=== PATIENT | female | born 1995 | race Caucasian/White ===

== ENCOUNTER 2020-06-13 12:16 | Emergency (ER) | payer OTHER ==
[2020-06-13 12:24] VITALS: BP 128/66
--- NOTE | 2020-06-13 12:31 | ED Physician Documentation ---
PD HPI HEENT - Stated complaint Stated Complaint: LEFT EAR PX,HEADACHE - Chief complaint Chief Complaint: Heent - History obtained from History obtained from: Patient - History of Present Illness Timing - onset: How many months ago (1) Timing - duration: Months (has had some pains left ear and some feeling of congestion/decreased hearing left ear for a month. Has had some drainage the past few days, along with worse pain. Also having sense of malodor/ foul smell that she thought was something outside of her, but could not identify what smelled badly.) Timing - details: Gradual onset, Still present (worse the past few days.) Location: Left ear Associated symptoms: Congestion. No: Fever, Facial swelling, Cough Similar symptoms before: Has not had sx before Recently seen: Not recently seen Review of Systems Constitutional: denies: Fever, Chills Ears: reports: Ear pain (left), Drainage/discharge (left) Nose: denies: Rhinorrhea / runny nose, Congestion Throat: denies: Sore throat Respiratory: denies: Cough Skin: denies: Rash Neurologic: denies: Headache PD PAST MEDICAL HISTORY - Past Medical History Cardiovascular: None Respiratory: None Neuro: None Endocrine/Autoimmune: None GI: None PIZZAMAKER: None : None HEENT: None Psych: None Musculoskeletal: None Derm: None - Past Surgical History Past Surgical History: No - Present Medications Home Medications: Ambulatory Orders Medication Instructions Recorded Confirmed Doxycycline Monohydrate 150 mg PO BID #14 capsule 06/13/20 Naproxen Sodium [Anaprox Ds] 550 mg PO BID #20 tablet 06/13/20 Neomycin/Polymyx/Hc Otic Drops 3 drops LEFTEAR QID 5 Days #1 06/13/20 [Cortisporin Ear Susp] bottle - Allergies Allergies/Adverse Reactions: Allergies Allergy/AdvReac Type Severity Reaction Status Date / Time No Known Drug Allergies Allergy Verified 06/13/20 12:21 - Social History Does the pt smoke?: No Smoking Status: Never smoker Does the pt drink ETOH?: Yes Does the pt have substance abuse?: No - POLST Patient has POLST: No PD ED PE NORMAL - Vitals Vital signs reviewed: Yes - General General: Alert and oriented X 3, No acute distress, Well developed/nourished - HEENT HEENT: Pharynx benign. No: Ears normal (left ear with redness and swelling medial canal, with some exudate, but also edema of part of the canal. No noted focal swelling. The TM is moderately red as well. ) - Neck Neck: Supple, no meningeal sign, No adenopathy - Cardiac Cardiac: RRR, No murmur - Respiratory Respiratory: Clear bilaterally - Derm Derm: No: Normal color, Warm and dry Results - Vitals Vitals: Vital Signs - 24 hr 06/13/20 12:21 Temperature 36.5 C Heart Rate 73 Respiratory 16 Rate Blood Pressure 128/66 O2 Saturation 98 Oxygen O2 Source Room air PD MEDICAL DECISION MAKING - ED course Complexity details: considered differential (seems like OE left ear, but also appearance of canal cellulitis. Also her congestion and sense of malodor suggests sinusitis. So will go with oral as well as otic medications. ), d/w patient Departure - Departure Disposition: Home, Self Care Clinical Impression: Otitis externa Qualifiers: Otitis externa type: diffuse Chronicity: acute Laterality: left Qualified Code(s): H60.312 - Diffuse otitis externa, left ear Sinusitis, acute Qualifiers: Sinusitis location: unspecified location Recurrence: non-recurrent Qualified Code(s): J01.90 - Acute sinusitis, unspecified Condition: Stable Record reviewed to determine appropriate education?: Yes Instructions: ED Sinusitis Abx Tx, ED Otitis Externa Follow-Up: [facility] [Provider Group] Prescriptions: Naproxen Sodium [Anaprox Ds] 550 mg PO BID #20 tablet Neomycin/Polymyx/Hc Otic Drops [Cortisporin Ear Susp] 3 drops LEFTEAR QID 5 Days #1 bottle Doxycycline Monohydrate 150 mg PO BID #14 capsule Comments: Use the Cortisporin eardrops for the infection in the ear canal. Add anti- inflammatory twice daily as well. Also appears that there is some infection in the tissue around the ear and sounds like you have some sinus infection as well. For that take the antibiotic twice daily for a week. Add Tylenol if needed for pains. Recheck if not improved well over the next several days with your primary care. Your problems with the ear pain and the abnormal smelling/odor sounds more like sinus infection and less like Covid. We did do a Covid test on you and that will result in likely a couple of days. We will call you with positive results. You have a Covid test pending. You need to self quarantine until the result is done and negative. Do not leave your house. Do not get near anybody. The results should be done in 48 to 72 hours, but sometimes longer. We will call with a positive result, the fastest way to get a negative result for confirmation though is to go to the hospital website at [email or web address], click on the my [facility] tab and sign up for the patient portal. If any friends or family get sick and would like to have a Covid test done, but do not have signs or symptoms that would necessitate being hospitalized, we encourage testing through our coronavirus swabbing station, call [phone] to schedule an appointment. Discharge Date/Time: 06/13/20 13:21
[2020-06-13] MEDS ORDERED: DOXYCYCLINE 100 MG TABLET PO STA (12:48)
[2020-06-13] MEDS ORDERED: IBUPROFEN 600 MG TABLET PO STA (12:48)
== END 2020-06-13 13:21 | disposition home or self-care (01) ==
LOC: ED 12:16
DX: H60.312 Diffuse otitis externa, left ear (principal); J01.90 Acute sinusitis, unspecified; Z20.822 Contact with and (suspected) exposure to COVID-19
CPT/HCPCS: 87635; 99283; 99284; A9270

== ENCOUNTER 2020-11-11 17:39 | Emergency (ER) | payer OTHER ==
[2020-11-11 19:21] LABS: BASOPHILS # (AUTO) 0.1 10^3/uL (0.0-0.1); BASOPHILS % (AUTO) 0.6 %; EOSINOPHILS % (AUTO) 0.2 %; HCT - HEMATOCRIT 41.4 % (37.0-47.0); HGB - HEMOGLOBIN 14.3 g/dL (12.0-16.0); LYMPHOCYTES # (AUTO) 1.7 10^3/uL (1.5-3.5); LYMPHOCYTES % (AUTO) 14.7 %; MEAN CORPUSCULAR HEMOGLOBIN 30.5 pg (27.0-31.0); MEAN CORPUSCULAR HGB CONC 34.5 g/dL (32.0-36.0); MEAN CORPUSCULAR VOLUME 88.3 fL (81.0-99.0); MEAN PLATELET VOLUME 9.1 fL (7.9-10.8); MONOCYTES # (AUTO) 0.7 10^3/uL (0.0-1.0); MONOCYTES % (AUTO) 5.6 %; NEUTROPHILS # (AUTO) 9.3 10^3/uL (1.5-6.6); NEUTROPHILS % (AUTO) 78.6 %; PLT - PLATELET COUNT 357 10^3/uL (130-450); RED BLOOD COUNT 4.69 10^6/uL (4.20-5.40); RED CELL DISTRIBUTION WIDTH 12.4 % (12.0-15.0); WHITE BLOOD COUNT 11.8 x10^3/uL (4.8-10.8)
[2020-11-11 19:36] LABS: ACETAMINOPHEN < 10 ug/mL (10-30); ALBUMIN 4.9 g/dL (3.2-5.5); ALBUMIN/GLOBULIN RATIO 1.4 (1.0-2.2); ALKALINE PHOSPHATASE 64 IU/L (42-121); ALT ALANINE AMINOTRANSFERASE 21 IU/L (10-60); AST ASPARTATE AMINOTRANSFERASE 21 IU/L (10-42); BUN - BLOOD UREA NITROGEN 13 mg/dL (6-20); CALCIUM 9.1 mg/dL (8.5-10.3); CARBON DIOXIDE - CO2 21 mmol/L (21-32); CHLORIDE 101 mmol/L (101-111); CREATININE 0.9 mg/dL (0.4-1.0); ETOH - ETHANOL < 5.0 mg/dL; GFR - MDRD 75 (>89); GLUCOSE 81 mg/dL (70-100); LIPASE 19 U/L (22-51); POTASSIUM 3.7 mmol/L (3.5-5.0); SALICYLATE < 6.0 mg/dL; SODIUM 133 mmol/L (135-145); TOTAL PROTEIN 8.3 g/dL (6.7-8.2)
[2020-11-11 22:10] VITALS: BP 126/69
[2020-11-11 22:35] LABS: MUDS CUTOFF CONCENTRATIONS CUTOFF CONC BELOW:
[2020-11-11 22:36] LABS: GLUCOSE, URINE (UA) NEGATIVE (NEGATIVE); KETONES,URINE (UA) 40 mg/dL (NEGATIVE); LEUKOCYTE ESTERASE, URINE NEGATIVE (NEGATIVE); NITRITE,URINE NEGATIVE (NEGATIVE); OCCULT BLOOD,URINE NEGATIVE (NEGATIVE); PH,URINE 5.5 PH (5.0-7.5); PROTEIN,URINE NEGATIVE (NEGATIVE); UROBILINOGEN,URINE 0.2 (NORMAL) E.U./dL (NORMAL)
[2020-11-11 22:37] LABS: CLARITY,URINE CLEAR (CLEAR)
[2020-11-11 22:39] LABS: BILIRUBIN,URINE NEGATIVE (NEGATIVE); ICTOTEST,URINE NEGATIVE
[2020-11-11 22:46] LABS: THC CANNABINOID SCREEN, URINE POSITIVE (NEGATIVE)
[2020-11-11 22:47] LABS: AMPHETAMINE SCREEN,URINE POSITIVE (NEGATIVE); BARBITURATE SCREEN,UR NEGATIVE (NEGATIVE); BENZODIAZEPINES SCREEN, URINE NEGATIVE (NEGATIVE); COCAINE SCREEN URINE NEGATIVE (NEGATIVE); METHADONE SCREEN, URINE NEGATIVE (NEGATIVE); METHAMPHETAMINES SCREEN, URINE NEGATIVE (NEGATIVE); OPIATE SCREEN, URINE NEGATIVE (NEGATIVE); OXYCODONE SCREEN, URINE NEGATIVE (NEGATIVE); PROPOXYPHENE SCREEN, URINE NEGATIVE (NEGATIVE); TRICYCLIC ANTIDEPRESSANT,URINE NEGATIVE (NEGATIVE)
--- NOTE | 2020-11-11 23:11 | ED Physician Documentation ---
History of Present Illness - Stated complaint Stated Complaint: MHE - Chief complaint Chief Complaint: MHE - History obtained from History obtained from: Patient - Additonal information Additional information: AndPatient comes emergency department chief complaint of I have been able to sleep and I cannot take my job anymore. Patient states she has a history of anxiety but that before she got station it would be, she was doing much better. She states that she felt that her former location and base was more organized and focused and she liked the work environment better. Patient states that some issues at work have really been bothering her and making her increasingly upset. She states that lately it is all come to ahead and that she has not slept in 4 days. Patient states that since not sleeping for 4 days, she has begun to hear the sound of whispering in her ears. She states that she has never had psychosis before and really thinks that she is from losing sleep. She denies any hallucinations at this moment.She states that [place] just want to give her medications. She did foot do an outpatient course of [facility] in managing stress and anxiety and states it is actually very helpful. She states she felt like she was in a good place as far as her mental status when she finished the course but then came back to find the same problems at work. 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 She states that this point that she is not suicidal or homicidal but she would like to try to figure out other resources that may help her get through. She states she had a big "meltdown" at work and spoke harshly to some of her higher reps. She states that a letter has been issued asking to go through the separation process with the patient from the [employer]. No other complaints at this time. Patient has not tried to harm herself in any way. She does have friends and significant other for support. Review of Systems Ten Systems: 10 systems reviewed and negative Constitutional: reports: Reviewed and negative Eyes: reports: Reviewed and negative Ears: reports: Reviewed and negative Nose: reports: Reviewed and negative Throat: reports: Reviewed and negative Cardiac: reports: Reviewed and negative Respiratory: reports: Reviewed and negative GI: reports: Reviewed and negative : reports: Reviewed and negative Skin: reports: Reviewed and negative Musculoskeletal: reports: Reviewed and negative Neurologic: reports: Reviewed and negative Psychiatric: reports: Hallucinations, Anxiety, Insomnia Endocrine: reports: Reviewed and negative Immunocompromised: reports: Reviewed and negative PD PAST MEDICAL HISTORY - Past Medical History Cardiovascular: None Respiratory: None Neuro: None Endocrine/Autoimmune: None GI: None CONTAINER COORDINATOR: None : None HEENT: None Psych: Depression, Anxiety, ADD/ADHD, Post traumatic stress disorder Musculoskeletal: None Derm: None - Past Surgical History Past Surgical History: No - Present Medications Home Medications: Ambulatory Orders Medication Instructions Recorded Confirmed Dextroamphetamine/Amphetamine 10 mg PO DAILY 11/11/20 11/11/20 [Adderall 10 mg Tablet] Dextroamphetamine/Amphetamine 30 mg PO DAILY 11/11/20 11/11/20 [Adderall 30 mg Tablet] Mirtazapine 15 mg PO DAILY 11/11/20 11/11/20 hydrOXYzine HCL [Hydroxyzine HCl] 10 mg PO DAILY 11/11/20 11/11/20 - Allergies Allergies/Adverse Reactions: Allergies Allergy/AdvReac Type Severity Reaction Status Date / Time No Known Drug Allergies Allergy Verified 11/11/20 17:50 - Social History Does the pt smoke?: No Smoking Status: Never smoker Does the pt drink ETOH?: Yes Does the pt have substance abuse?: No - Immunizations Immunizations are current?: Yes - POLST Patient has POLST: No PD ED PE NORMAL - Vitals Vital signs reviewed: Yes - General General: Alert and oriented X 3, Well developed/nourished, Other (Patient appears anxious but is generally calm.) - HEENT HEENT: PERRL - Neck Neck: Supple, no meningeal sign - Cardiac Cardiac: RRR, No murmur - Respiratory Respiratory: No respiratory distress, Clear bilaterally - Abdomen Abdomen: Soft, Non tender, Non distended - Derm Derm: Normal color, Warm and dry, No rash - Extremities Extremities: No deformity, No edema - Neuro Neuro: Alert and oriented X 3, motor setter 2-12 intact, Normal speech, Other (Grossly intact) - Psych Psych: Normal affect, Other (Patient appears anxious and sometimes becomes very animated and some agitated. However, she calms easily.) Results - Vitals Vitals: Vital Signs - 24 hr 11/11/20 11/11/20 17:50 22:09 Temperature 36.7 C 36.0 C L Heart Rate 106 H 100 Respiratory 18 18 Rate Blood Pressure 147/89 H 126/69 O2 Saturation 99 99 Oxygen O2 Source Room air - Labs Labs: Laboratory Tests 11/11/20 11/11/20 11/11/20 19:17 19:17 19:17 WBC 11.8 H RBC 4.69 Hgb 14.3 Hct 41.4 MCV 88.3 MCH 30.5 MCHC 34.5 RDW 12.4 Plt Count 357 MPV 9.1 Neut # (Auto) 9.3 H Lymph # (Auto) 1.7 Sanborn # (Auto) 0.7 Eos # (Auto) 0.0 Baso # (Auto) 0.1 Absolute Nucleated RBC 0.00 Nucleated RBC % 0.0 Sodium 133 L Potassium 3.7 Chloride 101 Carbon Dioxide 21 Anion Gap 11.0 BUN 13 Creatinine 0.9 Estimated GFR (MDRD) 75 L Glucose 81 Calcium 9.1 Total Bilirubin 1.0 AST 21 ALT 21 Alkaline Phosphatase 64 Total Protein 8.3 H Albumin 4.9 Globulin 3.4 Albumin/Globulin Ratio 1.4 Lipase 19 L TSH 1.38 Urine Color Urine Clarity Urine pH Ur Specific Saltese Urine Protein Urine Glucose (UA) Urine Ketones Urine Occult Blood Urine Nitrite Urine Bilirubin Urine Urobilinogen Ur Leukocyte Esterase Ur Microscopic Review Urine Culture Comments Salicylates < 6.0 Urine Opiates Screen Ur Oxycodone Screen Urine Methadone Screen Ur Propoxyphene Screen Acetaminophen < 10 L Ur Barbiturates Screen Ur Tricyclics Screen Ur Phencyclidine Scrn Ur Amphetamine Screen U Methamphetamines Scrn U Benzodiazepines Scrn Urine Cocaine Screen U Cannabinoids Screen Ethyl Alcohol < 5.0 11/11/20 22:29 WBC RBC Hgb Hct MCV MCH MCHC RDW Plt Count MPV Neut # (Auto) Lymph # (Auto) Sanborn # (Auto) Eos # (Auto) Baso # (Auto) Absolute Nucleated RBC Nucleated RBC % Sodium Potassium Chloride Carbon Dioxide Anion Gap BUN Creatinine Estimated GFR (MDRD) Glucose Calcium Total Bilirubin AST ALT Alkaline Phosphatase Total Protein Albumin Globulin Albumin/Globulin Ratio Lipase TSH Urine Color YELLOW Urine Clarity CLEAR Urine pH 5.5 Ur Specific Saltese >=1.030 H Urine Protein NEGATIVE Urine Glucose (UA) NEGATIVE Urine Ketones 40 H Urine Occult Blood NEGATIVE Urine Nitrite NEGATIVE Urine Bilirubin NEGATIVE Urine Urobilinogen 0.2 (NORMAL) Ur Leukocyte Esterase NEGATIVE Ur Microscopic Review NOT INDICATED Urine Culture Comments NOT INDICATED Salicylates Urine Opiates Screen NEGATIVE Ur Oxycodone Screen NEGATIVE Urine Methadone Screen NEGATIVE Ur Propoxyphene Screen NEGATIVE Acetaminophen Ur Barbiturates Screen NEGATIVE Ur Tricyclics Screen NEGATIVE Ur Phencyclidine Scrn NEGATIVE Ur Amphetamine Screen POSITIVE H U Methamphetamines Scrn NEGATIVE U Benzodiazepines Scrn NEGATIVE Urine Cocaine Screen NEGATIVE U Cannabinoids Screen POSITIVE H Ethyl Alcohol PD MEDICAL DECISION MAKING - ED course Complexity details: considered differential, d/w patient ED course: I discussed with the patient that it seems she is voluntary and that she may benefit from seeing social work. However, social work will not be until morning to have given the patient the option of waiting in the ED to see social sciences instructor or going home perhaps with a sleep aid, and trying to get some sleep. If she is feeling quite a bit better, this may she be all she needs. However, the patient may come back and see social sciences instructor in the morning if desired. The patient opted to go home and come back and see social work. She states that she does not feel she needs anything to help with sleep, as the events of the day have thoroughly worn her out. We have discussed the usual indications for return, including if she begins to feel suicidal. She is accompanied by significant other who can see her home. Departure - Departure Disposition: 01 Home, Self Care Clinical Impression: Anxiety, Acute reaction to situational stress Condition: Stable Instructions: ED Stress React Comments: Please continue your home medications. If you feel that you would like to be seen by social work in the morning, you may return. If you at all are feeling suicidal prior, please come back to the emergency department immediately. Discharge Date/Time: 11/11/20 23:39
== END 2020-11-11 23:39 | disposition home or self-care (01) ==
LOC: ED 17:39
DX: F41.9 Anxiety disorder, unspecified (principal); F43.0 Acute stress reaction
CPT/HCPCS: 36415; 80053; 80306; 80307; 80320; 80329; 81001; 81003; 83690; 84443; 85025; 87086; 99283; 99284

== ENCOUNTER 2020-12-22 17:01 | Emergency (ER) | payer OTHER ==
--- NOTE | 2020-12-22 17:37 | XRAY Report ---
PROCEDURE: Hand 3 View LT INDICATIONS: Trauma TECHNIQUE: 3 views of the hand(s) acquired. COMPARISON: None FINDINGS: Bones: No fractures or dislocations. No suspicious bony lesions. Soft tissues: No suspicious soft tissue calcifications. IMPRESSION: No evidence acute bony abnormality of the left hand. Reviewed by: Gael Dash MD on 12/22/2020 5:35 PM PDT Approved by: Gael Dash MD on 12/22/2020 5:35 PM PDT Station ID: [id number]
[2020-12-22] MEDS ORDERED: CYCLOBENZAPRINE 10 MG TABLET PO STA (17:45)
--- NOTE | 2020-12-22 17:47 | ED Physician Documentation ---
PD HPI UPPER EXT INJURY - Stated complaint Stated Complaint: LEFT HAND INJURY - Chief complaint Chief Complaint: Trauma Ext - History obtained from History obtained from: Patient - Additonal information Additional information: Main issue today is that she was punching a punching bag with her nondominant, left hand and injured the fifth metacarpal area of the left hand. She was using her left, nondominant hand because she injured her neck a couple of weeks ago while pushing something heavy and has persistent pain there as well with numbness of the third fourth and fifth fingers of the right hand. Review of Systems Constitutional: reports: Reviewed and negative Eyes: reports: Reviewed and negative Ears: reports: Reviewed and negative Nose: reports: Reviewed and negative PD PAST MEDICAL HISTORY - Past Medical History Past Medical History: No Cardiovascular: None Respiratory: None Neuro: None Endocrine/Autoimmune: None GI: None CLINICAL VETERINARIAN: None : None HEENT: None Psych: Depression, Anxiety, ADD/ADHD, Post traumatic stress disorder Musculoskeletal: None Derm: None - Past Surgical History Past Surgical History: No - Present Medications Home Medications: Ambulatory Orders Medication Instructions Recorded Confirmed Dextroamphetamine/Amphetamine 10 mg PO DAILY 11/11/20 11/11/20 [Adderall 10 mg Tablet] Dextroamphetamine/Amphetamine 30 mg PO DAILY 11/11/20 11/11/20 [Adderall 30 mg Tablet] Mirtazapine 15 mg PO DAILY 11/11/20 11/11/20 hydrOXYzine HCL [Hydroxyzine HCl] 10 mg PO DAILY 11/11/20 11/11/20 - Allergies Allergies/Adverse Reactions: Allergies Allergy/AdvReac Type Severity Reaction Status Date / Time No Known Drug Allergies Allergy Verified 12/22/20 17:13 - Social History Does the pt smoke?: No Smoking Status: Never smoker Does the pt drink ETOH?: Yes Does the pt have substance abuse?: No - Immunizations Immunizations are current?: Yes - POLST Patient has POLST: No PD ED PE NORMAL - Vitals Vital signs reviewed: Yes - General General: Alert and oriented X 3, No acute distress - Neck Neck: Supple, no meningeal sign, Other (Mild tenderness to the mid neck, no limited range of motion.) - Extremities Extremities: Other (Tender with ecchymosis over the fifth metacarpal head of the right hand with full range of motion and no loss of saccade) - Neuro Neuro: Alert and oriented X 3, Normal speech, Other (Mild numbness in a C8 distribution on the right with intact flexor and extension strength at the wrist, assistant professor of life sciences strength, interosseous strength, and thumb extension.) Results - Vitals Vitals: Vital Signs - 24 hr 12/22/20 17:13 Temperature 36.5 C Heart Rate 100 Respiratory 16 Rate Blood Pressure 121/86 H O2 Saturation 99 Oxygen O2 Source Room air - Rads (name of study) Left hand 3 view Radiology: EMP read contemporaneously (Unremarkable) Procedures - Splint (location) L garcia Splint applied by: Physician, Other (Left hand was placed in an ulnar gutter splint with 4 inch fiberglass by me in intrinsic plus position. Short arm.) PD MEDICAL DECISION MAKING - ED course ED course: She is a almost 2-week old neck injury, may be a cervical radiculopathy given the neuropathic symptoms. She is in physical therapy for this which I discussed is appropriate. She was placed in a fiberglass ulnar gutter splint on the left for comfort. Departure - Departure Disposition: 01 Home, Self Care Clinical Impression: Cervical radiculopathy Contusion, hand Qualifiers: Encounter type: initial encounter Laterality: left Qualified Code(s): S60.222A - Contusion of left hand, initial encounter Condition: Good Record reviewed to determine appropriate education?: Yes Instructions: ED Cervical Radiculopathy, ED Sprain Hand Comments: If your neck pain and symptoms do not improve over the next couple of months, discuss MRI with your physician. As discussed I do think in the interim physical therapy is totally appropriate already doing. You can wear the splint on your left hand for comfort, but remove it as needed [place] is not better. Forms: Activity restrictions
[2020-12-22 17:57] VITALS: BP 120/86
== END 2020-12-22 18:09 | disposition home or self-care (01) ==
LOC: ED 17:01
DX: S60.222A Contusion of left hand, initial encounter (principal); X58.XXXA Exposure to other specified factors, initial encounter; M54.12 Radiculopathy, cervical region
CPT/HCPCS: 29125; 73130; 99282; 99283; A9270

== ENCOUNTER 2021-03-17 08:01 | Outpatient (CLI) | payer OTHER ==
--- NOTE | 2021-03-17 09:33 | MRI Report ---
PROCEDURE: Thoracic Spine W/O INDICATIONS: CERVICALGIA, PAIN IN THORACIC SPINE TECHNIQUE: Noncontrast sagittal T1 spine echo and T2 fast spin echo, sagittal STIR, axial T1 and T2 fast spin ec ho through the thoracic spine. COMPARISON: None. FINDINGS: Image quality: Excellent. Alignment and Curvature: There is normal bony alignment. Bone Marrow: Marrow is of normal overall signal. No acute vertebral body compression fractures. Spinal Cord: Visualized spinal cord is normal in size and signal. Paraspinous Soft Tissues: No paravertebral masses. Miscellaneous: On axial images, central canal and foramina appear widely patent at all scanned level s. IMPRESSION: Unremarkable thoracic spine MRI with no evidence of canal stenosis or foraminal stenosis . Reviewed by: Gael Dash MD on 03/17/2021 9:32 AM PDT Approved by: Gael Dash MD on 03/17/2021 9:32 AM PDT Station ID: [id number]
--- NOTE | 2021-03-17 10:15 | MRI Report ---
PROCEDURE: Cervical Spine W/O INDICATIONS: CERVICALGIA, PAIN IN THORACIC SPINE TECHNIQUE: Noncontrast sagittal T1 spin echo and T2 fast spin echo, sagittal STIR, foraminal oblique sagittal T2 fast spin echo, and axial gradient echo or T2 fast spin echo through the cervical spine. COMPARISON: None. FINDINGS: Image quality: Excellent. Alignment and Curvature: There is loss of normal cervical lordosis. There is mild grade 1 retrolisth esis of C4 on C5 and C5 on C6. Bone Marrow: Marrow demonstrates normal overall signal. Minimal reactive signal within the end plat es adjacent to the C3-C4, C4-C5, C5-C6 intervertebral discs. Spinal Cord: Visualized spinal cord has normal size and signal. No cerebellar tonsillar herniation. Paraspinous Soft Tissues: No paravertebral masses. Prevertebral soft tissues are normal in thicknes s. C2-C3: Normal in appearance. C3-C4: Congenital canal stenosis. Mild disc desiccation and diffuse disc bulge. Mild bilateral face t hypertrophy. Mild canal stenosis. Mild left foraminal stenosis. No right foraminal stenosis. C4-C5: Congenital canal stenosis. Mild disc desiccation and diffuse disc bulge with superimposed rig ht paracentral protrusion. Mild facet and uncovertebral hypertrophy bilaterally. Moderate canal steno sis. Moderate left and mild right foraminal stenosis. C5-C6: Congenital canal stenosis. Mild disc height loss and desiccation. Mild diffuse disc bulge wit h superimposed broad-based central protrusion. Mild facet and uncovertebral hypertrophy bilaterally. Moderate to severe canal stenosis. Minimal anterior cord flattening. Moderate left greater than right foraminal stenosis. C6-C7: Congenital canal stenosis. Mild disc desiccation and diffuse disc bulge. Mild facet and uncov ertebral hypertrophy bilaterally. Mild canal stenosis. Mild bilateral foraminal stenosis. C7-T1: Normal in appearance. IMPRESSION: 1. Multilevel degenerative disc and facet disease, as well as uncovertebral hypertrophy, superimposed on diffuse congenital canal stenosis. 2. Multilevel canal stenoses, worst at C5-C6, where there is minimal cord flattening. 3. Multilevel foraminal stenoses, worst at C4-C5 and C5-C6 where there are moderate foraminal stenose s as described above. Reviewed by: Marco Colon MD on 03/17/2021 10:13 AM PDT Approved by: Marco Colon MD on 03/17/2021 10:13 AM PDT Station ID: [id number]
== END 2021-03-17 08:02 | disposition home or self-care (01) ==
LOC: DI 08:01
PROVIDERS: ATTEND Physician Assistant
DX: M50.322 Other cervical disc degeneration at C5-C6 level (principal); M48.02 Spinal stenosis, cervical region; M54.6 Pain in thoracic spine

== ENCOUNTER 2022-02-07 08:00 | Outpatient (CLI) | payer OTHER ==
[2022-02-07 18:04] LABS: BASOPHILS # (AUTO) 0.1 10^3/uL (0.0-0.1); BASOPHILS % (AUTO) 1.5 %; EOSINOPHILS # (AUTO) 0.1 10^3/uL (0.0-0.7); EOSINOPHILS % (AUTO) 2.1 %; HCT - HEMATOCRIT 40.3 % (37.0-47.0); HGB - HEMOGLOBIN 13.7 g/dL (12.0-16.0); LYMPHOCYTES # (AUTO) 1.9 10^3/uL (1.5-3.5); LYMPHOCYTES % (AUTO) 28.9 %; MEAN CORPUSCULAR HEMOGLOBIN 30.4 pg (27.0-31.0); MEAN CORPUSCULAR VOLUME 89.4 fL (81.0-99.0); MEAN PLATELET VOLUME 10.1 fL (7.9-10.8); MONOCYTES # (AUTO) 0.4 10^3/uL (0.0-1.0); MONOCYTES % (AUTO) 6.6 %; NEUTROPHILS % (AUTO) 60.6 %; PLT - PLATELET COUNT 325 10^3/uL (130-450); RED BLOOD COUNT 4.51 10^6/uL (4.20-5.40); RED CELL DISTRIBUTION WIDTH 12.9 % (12.0-15.0); WHITE BLOOD COUNT 6.7 x10^3/uL (4.8-10.8)
[2022-02-07 18:23] LABS: BILIRUBIN,URINE NEGATIVE (NEGATIVE); GLUCOSE, URINE (UA) NEGATIVE (NEGATIVE); KETONES,URINE (UA) NEGATIVE (NEGATIVE); LEUKOCYTE ESTERASE, URINE NEGATIVE (NEGATIVE); NITRITE,URINE NEGATIVE (NEGATIVE); OCCULT BLOOD,URINE SMALL (NEGATIVE); PROTEIN,URINE NEGATIVE (NEGATIVE); UROBILINOGEN,URINE 0.2 (NORMAL) E.U./dL (NORMAL)
[2022-02-07 18:28] LABS: ALBUMIN 4.4 g/dL (3.2-5.5); ALBUMIN/GLOBULIN RATIO 1.5 (1.0-2.2); BILIRUBIN,TOTAL 0.5 mg/dL (0.2-1.0); CLARITY,URINE CLEAR (CLEAR); CREATININE 0.8 mg/dL (0.4-1.0); POTASSIUM 3.8 mmol/L (3.5-5.0); TOTAL PROTEIN 7.3 g/dL (6.7-8.2)
[2022-02-07 18:38] LABS: HCG,QUALITATIVE BLOOD NEGATIVE
[2022-02-07 18:51] LABS: BACTERIA,URINE None Seen /HPF (None Seen); RBC,URINE 0-5 /HPF (0-5); SQUAMOUS EPITHELIAL CELL,UR FEW Squamous (<= Few); WBC,URINE 0-3 /HPF (0-5)
== END 2022-02-07 23:59 | disposition home or self-care (01) ==
LOC: LAB.N 08:00
PROVIDERS: ATTEND Nurse Practitioner
DX: R10.9 Unspecified abdominal pain (principal)
CPT/HCPCS: 36415; 80053; 81001; 81003; 82150; 83690; 84703; 85025; 87086

== ENCOUNTER 2023-08-10 07:00 | Outpatient (CLI) | payer SELFPAY ==
[2023-08-10 16:40] LABS: INFLUENZA A- RESP PCR PANEL NOT DETECTED; INFLUENZA B - RESP PCR PANEL NOT DETECTED; RSV- RESP PCR PANEL NOT DETECTED; SARS-CoV-2 -RESP PCR PANEL NOT DETECTED
== END 2023-08-10 23:59 | disposition home or self-care (01) ==
LOC: LAB.S 07:00
PROVIDERS: ATTEND Emergency Medicine
DX: J06.9 Acute upper respiratory infection, unspecified (principal)
CPT/HCPCS: 87637